=== PATIENT | female | born 1990 | race American Indian/Alaskan Native ===

== ENCOUNTER 2021-02-05 23:20 | Observation (INO) | payer MEDICAID ==
[2021-02-06 00:45] LABS: Basophils % (Auto) 0.2 % (0.0-1.8); Eosinophils % (Auto) 0.4 % (0.0-4.3); Hemoglobin 10.8 gm/dl (10.1-14.3); Lymphocytes # (Auto) 3.1 K/mm3 (1.2-5.4); Lymphocytes % (Auto) 25.6 % (13.4-35.0); Mean Corpuscular HGB Conc 34 % (30-34); Monocytes # (Auto) 0.7 K/mm3 (0.0-0.8); Monocytes % (Auto) 5.5 % (0.0-7.3); Platelet Count 715 K/mm3 (140-440); Red Blood Count 4.57 M/mm3 (3.65-5.03); Red Cell Distribution Width 17.9 % (13.2-15.2)
[2021-02-06 01:05] LABS: Alanine Aminotransferase 11 units/L (7-56); Albumin 3.8 g/dL (3.9-5); BUN/Creatinine Ratio 11; Blood Urea Nitrogen 9 mg/dL (7-17); Calcium 9.3 mg/dL (8.4-10.2); Hemolysis Index 3; Mean Corpuscular Volume 70 fl (79-97)
[2021-02-06] MEDS ORDERED: HYDROmorphone 1 MG/1 ML INJ IV ONE ×2 (01:22→05:10)
[2021-02-06] MEDS ORDERED: SODIUM CHLORIDE 0.9% 1000 ML 1,000 ML IV ONE ×4 (01:22→08:54)
[2021-02-06] MEDS ORDERED: ONDANSETRON 4 MG/2 ML INJ IV ONE (01:22)
--- NOTE | 2021-02-06 01:25 | Emergency Department Report ---
ED Abdominal Pain HPI - General Chief Complaint: Rectal Pain Stated Complaint: RECTAL BLEEDING/DIARRHEA PUI?: No Time Seen by Provider: 02/06/21 01:14 Source: patient Mode of arrival: Ambulatory Limitations: No Limitations - History of Present Illness Initial Comments: Patient is a 30-year-old female that presents emergency room with complaints of abdominal pain and GI bleed. Patient states she got bright red blood per rectum . Patient states her abdominal pain been going on for 3 weeks. Patient states her abdominal pain is worsening. Patient states it was tolerable up until yesterday. Patient states her bright red blood per rectum was minimal until up to yesterday and it became more profuse and heavy rectal bleeding. Patient states she has a history of ulcerative colitis. Patient states this is one of her worst flareups. Patient states she is unable to tolerate the pain and the rectal bleeding. Patient states the pain is a 10 out of 10. Patient dates the pain is better with rest and worse with movement and vomiting. Patient states she has had nausea and vomiting as well. Patient denies blood in her vomitus. Patient complains of diarrhea. Patient denies constipation. Patient denies chest pain shortness of breath. Patient denies recent travel. Patient denies recent international travel. Patient denies exposure to the novel coronavirus. Patient denies sick contacts. Patient denies fever and chills. Patient denies cough. Patient denies loss of smell. Patient denies coming in contact with anybody with symptoms of the novel coronavirus. MD Complaint: abdominal pain -: Sudden Location: diffuse Radiation: none Migration to: no migration Severity: severe Severity scale (0 -10): 10 Quality: stabbing Consistency: constant Improves With: rest Worsens With: vomiting, movement Associated Symptoms: nausea, vomiting, hematochezia. denies: diarrhea, fever, chills, constipation, dysuria, hematemesis, melena, hematuria - Related Data LMP (females 10-50): last week Allergies Allergy/AdvReac Type Severity Reaction Status Date / Time No Known Allergies Allergy Verified 02/06/21 04:44 ED Review of Systems ROS: Stated complaint: RECTAL BLEEDING/DIARRHEA Other details as noted in HPI Constitutional: denies: chills, fever Eyes: denies: eye pain, eye discharge, vision change ENT: denies: ear pain, throat pain Respiratory: denies: cough, shortness of breath, wheezing Cardiovascular: denies: chest pain, palpitations Endocrine: no symptoms reported Gastrointestinal: abdominal pain, nausea, vomiting, diarrhea, hematochezia. denies: constipation, hematemesis Genitourinary: denies: urgency, dysuria, discharge Musculoskeletal: denies: back pain, joint swelling, arthralgia Skin: denies: rash, lesions Neurological: denies: headache, weakness, paresthesias Psychiatric: denies: anxiety, depression Hematological/Lymphatic: denies: easy bleeding, easy bruising ED Past Medical Hx - Past Medical History Previous Medical History?: Yes Additional medical history: ulcerative collitis - Surgical History Past Surgical History?: Yes Additional Surgical History: c-sectionx 1 - Family History Family history: no significant - Social History Smoking Status: Never Smoker Substance Use Type: None ED Physical Exam - General Limitations: No Limitations General appearance: alert, in no apparent distress - Head Head exam: Present: atraumatic, normocephalic - Eye Eye exam: Present: normal appearance - ENT ENT exam: Present: mucous membranes moist - Neck Neck exam: Present: normal inspection - Respiratory Respiratory exam: Present: normal lung sounds bilaterally. Absent: respiratory distress - Cardiovascular Cardiovascular Exam: Present: regular rate, normal rhythm. Absent: systolic murmur, diastolic murmur, rubs, gallop - GI/Abdominal GI/Abdominal exam: Present: soft, tenderness, normal bowel sounds - Extremities Exam Extremities exam: Present: normal inspection - Back Exam Back exam: Present: normal inspection - Neurological Exam Neurological exam: Present: alert, oriented X3 - Psychiatric Psychiatric exam: Present: normal affect, normal mood - Skin Skin exam: Present: warm, dry, intact, normal color. Absent: rash ED Course Vital Signs 02/05/21 02/05/21 02/06/21 23:47 23:51 01:34 Temperature 98.7 F Pulse Rate 48 L 148 H Respiratory 18 18 Rate Blood Pressure 111/80 O2 Sat by Pulse 97 Oximetry 02/06/21 02/06/21 02/06/21 02:00 02:04 02:30 Temperature Pulse Rate 90 91 H Respiratory 18 Rate Blood Pressure 90/56 90/51 O2 Sat by Pulse 96 99 Oximetry 02/06/21 02/06/21 02/06/21 03:16 03:30 03:46 Temperature Pulse Rate 95 H 89 86 Respiratory 32 H 15 14 Rate Blood Pressure 92/59 92/59 98/52 O2 Sat by Pulse 98 98 98 Oximetry 02/06/21 02/06/21 02/06/21 04:00 04:16 05:49 Temperature Pulse Rate 86 84 Respiratory 14 17 18 Rate Blood Pressure 98/52 98/52 O2 Sat by Pulse 98 98 Oximetry - Reevaluation(s) Reevaluation #1: Patient heart rate initially high and has responded well to treatment. Patient blood pressure on the low side in the patient will receive more fluids. 02/06/21 03:09 Reevaluation #2: I discussed all results with patient. I discussed plan of care with patient. Patient agrees with plan of care and admission. Patient to be admitted to the hospitalist service. 02/06/21 05:14 - Consultations Consultation #1: I discussed the case with GI, Dr. HERNANDEZ.. Dr. HERNANDEZ agrees with admission. 02/06/21 05:09 Consultation #2: Hospitalist consulted for admission. Hospitalist to admit patient. 02/06/21 05:09 ED Medical Decision Making - Lab Data Result diagrams: 02/06/21 00:19 02/06/21 00:19 - Radiology Data Radiology results: report reviewed CT abdomen pelvis w con INDICATION: Diffuse abdominal pain with rectal bleeding. COMPARISON: None TECHNIQUE: Abdominal and pelvic CT exam performed. All CT scans at this location are performed using CT dose reduction for ALARA by means of automated exposure control. FINDINGS: CT ABDOMEN and PELVIS: Lung Bases: No significant abnormality. Liver: No significant abnormality. Biliary: No significant abnormality. Spleen: No significant abnormality. Pancreas: No significant abnormality. Adrenals: No significant abnormality. Kidneys: No significant abnormality. Lymphatics: No lymphadenopathy. Vasculature: No significant abnormality. Bowel: Continuous pancolonic wall thickening with some mucosal edema and mucosal hyperemia. Terminal ileum mucosal hyperemia is present. However, the remainder of the small bowel does not appear to be affected and findings could be related to backwash ileitis. Normal appendix. Pelvis: Fluid in the pelvis which is most likely related to colitis. Osseous Structures: No aggressive osseous lesion. 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 Additional Findings: None IMPRESSION: 1. Diffuse pancolitis. Correlate clinically but given the the continuous segment of involvement from rectum to the cecum, findings raise concern for underlying ulcerative colitis. - Medical Decision Making Patient is a 30-year-old female who presents emergency room with complaints of generalized abdominal pain, nausea, vomiting, bright red blood per rectum. Patient has history of ulcerative colitis. Patient had labs done which were essentially unremarkable. Patient had CT scan abdomen which shows pancolitis. Patient admitted to the hospital service for further evaluation treatment. Prior to admission, I discussed the case with GI. GI recommends admission for pain control and observation. Critical care time documented due to the multiple reassessments, prolonged time at the bedside, interpretation of diagnostics and labs. - Differential Diagnosis Ulcerative colitis, abdominal pain, bright red blood per rectum, Critical Care Time: Yes Critical care time in (mins) excluding proc time.: 35 Critical care attestation.: If time is entered above; I have spent that time in minutes in the direct care of this critically ill patient, excluding procedure time. Critical Care Time: 35 minutes ED Disposition Clinical Impression: BRBPR (bright red blood per rectum) Abdominal pain Qualifiers: Abdominal location: generalized Qualified Code(s): R10.84 - Generalized abdominal pain Ulcerative colitis Qualifiers: Ulcerative colitis location: ulcerative pancolitis Digestive disease co mplication type: unspecified complication Qualified Code(s): K51.019 - Ulcerative (chronic) pancolitis with unspecified complications Hypotension Qualifiers: Hypotension type: unspecified hypotension type Qualified Code(s): I95.9 - Hypotension, unspecified Disposition: DC-09 OP ADMIT IP TO THIS HOSP Is pt being admited?: Yes Does the pt Need Aspirin: No Condition: Critical Time of Disposition: 05:15
--- NOTE | 2021-02-06 03:23 | Cat Scan Report ---
CT abdomen pelvis w con INDICATION: Diffuse abdominal pain with rectal bleeding. COMPARISON: None TECHNIQUE: Abdominal and pelvic CT exam performed. All CT scans at this location are performed using CT dose reduction for ALARA by means of automated exposure control. FINDINGS: CT ABDOMEN and PELVIS: Lung Bases: No significant abnormality. Liver: No significant abnormality. Biliary: No significant abnormality. Spleen: No significant abnormality. Pancreas: No significant abnormality. Adrenals: No significant abnormality. Kidneys: No significant abnormality. Lymphatics: No lymphadenopathy. Vasculature: No significant abnormality. Bowel: Continuous pancolonic wall thickening with some mucosal edema and mucosal hyperemia. Terminal ileum mucosal hyperemia is present. However, the remainder of the small bowel does not appear to be a ffected and findings could be related to backwash ileitis. Normal appendix. Pelvis: Fluid in the pelvis which is most likely related to colitis. Osseous Structures: No aggressive osseous lesion. 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 Additional Findings: None IMPRESSION: 1. Diffuse pancolitis. Correlate clinically but given the the continuous segment of involvement from rectum to the cecum, findings raise concern for underlying ulcerative colitis. Signer Name: Edwardo Mohan MD Signed: 02/06/2021 3:19 AM Workstation Name: [id number]
[2021-02-06 03:57] LABS: Bilirubin,Urine NEG (Negative); Blood,Urine NEG (Negative); Color,Urine Straw (Yellow); Mucus,Urine FEW /HPF; Protein,Urine <15 mg/dL mg/dL (Negative); Urobilinogen,Urine < 2.0 mg/dL (<2.0); WBC,Urine < 1.0 /HPF (0.0-6.0)
[2021-02-06] MEDS ORDERED: PIPERACIL/TAZOBACTA 4.5/NS 100 4.5 GM/100 ML VIAL IV ONE (05:10)
[2021-02-06] MEDS ORDERED: MORPHINE 2 MG/1 ML INJ IV PRN (05:14)
[2021-02-06] MEDS ORDERED: ACETAMINOPHEN 325 MG TAB PO PRN (05:14)
[2021-02-06] MEDS ORDERED: ALBUTEROL 2.5 MG/3 ML NEBU IH PRN (05:14)
[2021-02-06] MEDS ORDERED: NALOXONE 0.4 MG/1 ML INJ IV PRN (05:14)
[2021-02-06] MEDS ORDERED: ONDANSETRON 4 MG/2 ML INJ IV PRN (05:14)
--- NOTE | 2021-02-06 05:22 | History and Physical Report ---
History of Present Illness Date of examination: 02/06/21 Date of admission: 02/06/2021 Chief complaint: Abdominal cramping, bright red blood per rectum History of present illness: 30-year-old -[place] female with history of ulcerative colitis who presents to [facility] ED with complaints of abdominal pain/cramping and bright red blood per rectum. Patient states she has been experiencing diffuse abdominal cramping/pain for the past 3 weeks. Initially her pain was manageable, but now it has worsened and she is unable to tolerate the pain. She rates her pain 10/10 and is alleviated with rest and pain medicine. Endorses heavy bright red blood per rectum x1 day, nausea, vomiting, and diarrhea. She states that when she goes to the bathroom there is no stool only bright red blood. Patient states she usually goes to [place] or [facility] for care. Denies fever, chills, headache, shortness of breath, chest pain, palpitation, hemoptysis, hematic emesis, constipation, loss of smell, loss of taste, blurred vision, loss of vision, hematuria, dysuria, or recent sick contacts Past History Past Medical History: other (Ulcerative colitis) Past Surgical History: (x1) Social history: single, Lives alone, full code. denies: smoking, alcohol abuse, IV drug use Family history: cancer (mother: breast ca), diabetes, hypertension Medications and Allergies Allergies Allergy/AdvReac Type Severity Reaction Status Date / Time No Known Allergies Allergy Verified 02/06/21 04:44 Active Meds: Active Medications Sodium Chloride (Nacl 0.9% 1000 Ml) 1,000 mls @ 999 mls/hr IV BOLUS ONE Stop: 02/06/21 05:26 Last Admin: 02/06/21 04:30 Dose: 999 mls/hr Documented by: Sodium Chloride (Nacl 0.9% 1000 Ml) 1,000 mls @ 999 mls/hr IV BOLUS ONE Stop: 02/06/21 06:10 Piperacillin Sod/Tazobactam Sod (Zosyn/Ns 4.5gm/100ml) 4.5 gm in 100 mls @ 200 mls/hr IV ONCE ONE; Protocol Stop: 02/06/21 05:39 Sodium Chloride (Sodium Chloride 0.9% 10 Ml Flush Syringe) 10 ml IV PRN PRN PRN Reason: LINE FLUSH Review of Systems All systems: negative (As noted in HPI) Exam - Physical Exam Narrative exam: Physical exam General appearance: Present: No acute distress, alert and oriented 3, adult female - EENT Eyes: Present: PERRL, EOM intact ENT: hearing intact, normal dentition - Neck Neck: Present: supple, normal ROM - Respiratory Respiratory effort: Non-labored Respiratory: Clear throughout - Cardiovascular Heart rate: 95 (bpm) Rhythm: Sinus Heart Sounds: Present: S1 & S2. Absent: rub, click - Extremities Extremities: no ischemia, pulses intact, - Peripheral Assessment Peripheral Pulses: within normal limits - Abdominal General gastrointestinal: soft, diffuse tenderness, distended, active bowel sounds - Integumentary Integumentary: Present: warm, dry - Musculoskeletal Musculoskeletal: Able to move all extremities -Neurological Neurological: CN II-XII intact - Psychiatric Psychiatric: cooperative - Constitutional Vitals: Temp Pulse Resp BP Pulse Ox 98.7 F 84 17 98/52 98 02/05/21 23:47 02/06/21 04:16 02/06/21 04:16 02/06/21 04:16 02/06/21 04:16 Results - Labs CBC & Chem 7: 02/06/21 00:19 02/06/21 00:19 Labs: Laboratory Last Values WBC 12.3 K/mm3 (4.5-11.0) H 02/06/21 00:19 RBC 4.57 M/mm3 (3.65-5.03) 02/06/21 00:19 Hgb 10.8 gm/dl (10.1-14.3) 02/06/21 00:19 Hct 32.0 % (30.3-42.9) 02/06/21 00:19 MCV 70 fl (79-97) L 02/06/21 00:19 MCH 24 pg (28-32) L 02/06/21 00:19 MCHC 34 % (30-34) 02/06/21 00:19 RDW 17.9 % (13.2-15.2) H 02/06/21 00:19 Plt Count 715 K/mm3 (140-440) H 02/06/21 00:19 Lymph % (Auto) 25.6 % (13.4-35.0) 02/06/21 00:19 [place] % (Auto) 5.5 % (0.0-7.3) 02/06/21 00:19 Eos % (Auto) 0.4 % (0.0-4.3) 02/06/21 00:19 Baso % (Auto) 0.2 % (0.0-1.8) 02/06/21 00:19 Lymph # (Auto) 3.1 K/mm3 (1.2-5.4) 02/06/21 00:19 [place] # (Auto) 0.7 K/mm3 (0.0-0.8) 02/06/21 00:19 Eos # (Auto) 0.0 K/mm3 (0.0-0.4) 02/06/21 00:19 Baso # (Auto) 0.0 K/mm3 (0.0-0.1) 02/06/21 00:19 Seg Neutrophils % 68.3 % (40.0-70.0) 02/06/21 00:19 Seg Neutrophils # 8.4 K/mm3 (1.8-7.7) H 02/06/21 00:19 Sodium 138 mmol/L (137-145) 02/06/21 00:19 Potassium 3.7 mmol/L (3.6-5.0) 02/06/21 00:19 Chloride 95.9 mmol/L (98-107) L 02/06/21 00:19 Carbon Dioxide 28 mmol/L (22-30) 02/06/21 00:19 Anion Gap 18 mmol/L 02/06/21 00:19 BUN 9 mg/dL (7-17) 02/06/21 00:19 Creatinine 0.8 mg/dL (0.6-1.2) 02/06/21 00:19 Estimated GFR > 60 ml/min 02/06/21 00:19 BUN/Creatinine Ratio 11 % 02/06/21 00:19 Glucose 71 mg/dL (65-100) 02/06/21 00:19 Calcium 9.3 mg/dL (8.4-10.2) 02/06/21 00:19 Total Bilirubin < 0.20 mg/dL (0.1-1.2) 02/06/21 00:19 AST 13 units/L (5-40) 02/06/21 00:19 ALT 11 units/L (7-56) 02/06/21 00:19 Alkaline Phosphatase 67 units/L (35-129) 02/06/21 00:19 Total Protein 6.7 g/dL (6.3-8.2) 02/06/21 00:19 Albumin 3.8 g/dL (3.9-5) L 02/06/21 00:19 Albumin/Globulin Ratio 1.3 % 02/06/21 00:19 HCG, Qual Negative (Negative) 02/06/21 00:19 Urine Color Straw (Yellow) 02/06/21 Unknown Urine Turbidity Clear (Clear) 02/06/21 Unknown Urine pH 7.0 (5.0-7.0) 02/06/21 Unknown Ur Specific [place] 1.017 (1.003-1.030) 02/06/21 Unknown Urine Protein <15 mg/dl mg/dL (Negative) 02/06/21 Unknown Urine Glucose (UA) Neg mg/dL (Negative) 02/06/21 Unknown Urine Ketones Tr mg/dL (Negative) 02/06/21 Unknown Urine Blood Neg (Negative) 02/06/21 Unknown Urine Nitrite Neg (Negative) 02/06/21 Unknown Urine Bilirubin Neg (Negative) 02/06/21 Unknown Urine Urobilinogen < 2.0 mg/dL (<2.0) 02/06/21 Unknown Ur Leukocyte Esterase Neg (Negative) 02/06/21 Unknown Urine WBC (Auto) < 1.0 /HPF (0.0-6.0) 02/06/21 Unknown Urine RBC (Auto) 1.0 /HPF (0.0-6.0) 02/06/21 Unknown U Epithel Cells (Auto) < 1.0 /HPF (0-13.0) 02/06/21 Unknown Urine Mucus Few /HPF 02/06/21 Unknown - Imaging and Cardiology Imaging and Cardiology: CT abdomen/pelvis: FINDINGS: CT ABDOMEN and PELVIS: Lung Bases: No significant abnormality. Liver: No significant abnormality. Biliary: No significant abnormality. Spleen: No significant abnormality. Pancreas: No significant abnormality. Adrenals: No significant abnormality. Kidneys: No significant abnormality. Lymphatics: No lymphadenopathy. Vasculature: No significant abnormality. Bowel: Continuous pancolonic wall thickening with some mucosal edema and mucosal hyperemia. Terminal ileum mucosal hyperemia is present. However, the remainder of the small bowel does not appear to be affected and findings could be related to backwash ileitis. Normal appendix. Pelvis: Fluid in the pelvis which is most likely related to colitis. Osseous Structures: No aggressive osseous lesion. 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 Additional Findings: None IMPRESSION: 1. Diffuse pancolitis. Correlate clinically but given the the continuous segment of involvement from rectum to the cecum, findings raise concern for underlying ulcerative colitis. Assessment and Plan Assessment and plan: Ulcerative colitis -CT abdomen pelvis shows Diffuse pancolitis -History of ulcerative colitis -IV systemic steroids -On broad-spectrum IV ABX -On Protonix -Cultures pending -N.p.o. for now -GI consulted with plans to see patient in a.m. Acute abdominal pain -Secondary to #1 -Pain management, supportive care Hypotension -BP on admission 92/59 -Responsive to fluid resuscitation -On IVF -Continue to monitor BP Leukocytosis -WBC 12.3 on admission -Cultures pending -On IV ABX -Continue to monitor CBC Advance Directives: No VTE prophylaxis?: Mechanical Reason for no VTE Prophylaxis: Bleeding Plan of care discussed with patient/family: Yes
[2021-02-06] MEDS: methylPREDNISolone Sod Succinate 40 MG/1 ML INJ IV SCH ×3 (05:55→21:55)
[2021-02-06] MEDS ORDERED: D5W/0.45% NACL 1,000 ML IV SCH (06:00)
[2021-02-06] MEDS ORDERED: SODIUM CHLORIDE 0.9% 500 ML 500 ML IV ONE (06:49)
[2021-02-06] MEDS: PANTOPRAZOLE 40 MG INJ IV SCH ×2 (10:05→21:55)
--- NOTE | 2021-02-06 13:06 | Consultation ---
History of Present Illness - Reason for Consult Consult date: 02/06/21 Ulcerative colitis Requesting physician: KUMAR PORTILLO - History of Present Illness Ms. Ngo is a 30-year-old [employer] employee admitted with diagnosis of ulcerative colitis. Patient states that she was initially diagnosed with Crohn's disease at [facility] in 2018. Last year, after another colonoscopy, she was changed to a diagnosis of ulcerative colitis. She had been on mesalamine prev iously but it failed to work. In June 2020, she was started on Humira and was on steroids as well. She said it did not work well and they were discontinued a month ago by her [facility]. She has had ongoing problems with diarrhea since then with up to 10 bowel movements a day that have been bloody. She denies any significant abdominal pain nausea or vomiting. She was having difficulty getting care in a timely fashion at [facility]. She also went to [facility] several times to the hospital and did not get any help with her ulcerative colitis. She therefore decided to come to [facility]. Currently, no abdominal pain nausea or vomiting. She denies fevers chills or sweats. She has lost 15 pounds over the last month and a half. Medications reviewed. Past History Past Medical History: GERD, other (Ulcerative colitis) Past Surgical History: (x1) Social history: single, Lives alone, full code. denies: smoking, alcohol abuse, IV drug use Family history: cancer (mother: breast ca), diabetes, hypertension Medications and Allergies Allergies Allergy/AdvReac Type Severity Reaction Status Date / Time No Known Allergies Allergy Verified 02/06/21 04:44 Active Meds: Active Medications Acetaminophen (Acetaminophen 325 Mg Tab) 650 mg PO Q4H PRN PRN Reason: Pain MILD(1-3)/Fever >100.5/HOLLEY Albuterol (Albuterol 2.5 Mg/3 Ml Nebu) 2.5 mg IH Q3HRT PRN PRN Reason: Shortness Of Breath Hydromorphone HCl (Hydromorphone 1 Mg/1 Ml Inj) 0.5 mg IV Q3H PRN PRN Reason: Pain , Severe (7-10) Dextrose/Sodium Chloride (D5/0.45ns) 1,000 mls @ 75 mls/hr IV DIRECT BELLA Last Admin: 02/06/21 06:44 Dose: 75 mls/hr Documented by: Piperacillin Sod/Tazobactam Sod (Zosyn/Ns 4.5gm/100ml) 4.5 gm in 100 mls @ 200 mls/hr IV Q8H [facility]; Protocol Methylprednisolone Sodium Succinate (Methylprednisolone Sod Succinate 40 Mg/1 Ml Inj) 20 mg IV Q8HR [facility] Last Admin: 02/06/21 05:55 Dose: 20 mg Documented by: Morphine Sulfate (Morphine 2 Mg/1 Ml Inj) 2 mg IV Q4H PRN PRN Reason: Pain, Moderate (4-6) Naloxone HCl (Naloxone 0.4 Mg/1 Ml Inj) 0.1 mg IV Q2MIN PRN PRN Reason: Res Rate </= 8 or 02 SAT < 92% Ondansetron HCl (Ondansetron 4 Mg/2 Ml Inj) 4 mg IV Q6H PRN PRN Reason: Nausea And Vomiting Pantoprazole Sodium (Pantoprazole 40 Mg Inj) 40 mg IV BID [facility] Last Admin: 02/06/21 10:05 Dose: 40 mg Documented by: Sodium Chloride (Sodium Chloride 0.9% 10 Ml Flush Syringe) 10 ml IV PRN PRN PRN Reason: LINE FLUSH Sodium Chloride (Sodium Chloride 0.9% 10 Ml Flush Syringe) 10 ml IV BID [facility] Last Admin: 02/06/21 10:06 Dose: 10 ml Documented by: Review of Systems All systems: negative (as per HPI) Exam - Constitutional Vitals: Temp Pulse Resp BP Pulse Ox 98.4 F 83 16 106/62 99 02/06/21 11:42 02/06/21 11:42 02/06/21 11:42 02/06/21 11:42 02/06/21 11:42 General appearance: Present: no acute distress - EENT Eyes: Present: PERRL, EOM intact ENT: hearing intact - Respiratory Respiratory effort: normal Respiratory: bilateral: CTA - Cardiovascular Rhythm: regular Heart Sounds: Present: S1 & S2 - Extremities Extremities: No edema - Abdominal General gastrointestinal: Present: soft, non-tender Results - Labs CBC & Chem 7: 02/06/21 00:19 02/06/21 00:19 Labs: Abnormal lab results 02/06/21 02/06/21 Range/Units 00:19 00:19 WBC 12.3 H (4.5-11.0) K/mm3 MCV 70 L (79-97) fl MCH 24 L (28-32) pg RDW 17.9 H (13.2-15.2) % Plt Count 715 H (140-440) K/mm3 Seg Neutrophils # 8.4 H (1.8-7.7) K/mm3 Chloride 95.9 L (98-107) mmol/L Albumin 3.8 L (3.9-5) g/dL - Imaging and Cardiology CT scan - abdomen: report reviewed (Pancolitis) Assessment and Plan 1. Ulcerative colitis -with pancolitis noted on CT scan. Patient is currently on no medications, and has failed mesalamine as well as Humira. She states that she does fairly well with steroids. She is awaiting escalation of management of her care but has not been able to get an appointment in a timely fashion, and therefore presented here. She is interested in trying to find alternate GI care. -Give IV steroids today and if tolerates diet well, may discharge to home on oral prednisone at 40 mg/day and taper by 10 mg/week. -Would also empirically give her metronidazole and ciprofloxacin for 10 days to help facilitate reducing her flare. -Patient will need outpatient GI follow-up with an IBD specialist since she has failed Humira and mesalamine. She may require a trial of an alternate medication such as Stelara or Remicade, and possibly the addition of other immunomodulators. If all else fails, surgical management would be appropriate. 2. Microcytic anemia -most consistent with chronic blood loss. -Check iron levels, and discharge empirically on oral iron. If patient does well, she may be discharged to home from a GI standpoint with outpatient follow-up in 2 to 3 weeks.
[2021-02-06] MEDS: PIPERACIL/TAZOBACTA 4.5/NS 100 4.5 GM/100 ML VIAL IV SCH ×2 (13:56→21:56)
[2021-02-06] MEDS ORDERED: methylPREDNISolone Sod Suc 40 MG in SODIUM CHLORIDE 0.9% 100 ML IV SCH (14:00)
[2021-02-06 14:28] LABS: Iron 12 ug/dL (37-170); Total Iron Binding Capacity 199 mcg/dL (250-450)
--- NOTE | 2021-02-06 15:12 | Event Note ---
Date: 02/06/21 Patient seen and examined This the second visit after midnight Vitals noted, patient continued to complains of abdominal cramping but symptoms somewhat improved H&H stable, S1 and S2 p.o. daily, clear to auscultation bilaterally, abdomen with diffuse mild tenderness 30-year-old -[place] female with history of ulcerative colitis who pres ents to [facility] ED with complaints of abdominal pain/cramping and bright red blood per rectum. Continue empiric steroid and empiric antibiotics If clinically stable and able to tolerate diet possible discharge tomorrow GI consulted, appreciate recommendation Monitor CBC and BMP It took me about 28 minutes to reevaluate and reasses this patient, discussed with RN/CM, review medical documents, lab results, imaging, medication list and placing order.
[2021-02-06] MEDS: HYDROmorphone 1 MG/1 ML INJ IV PRN (18:19)
[2021-02-07] MEDS: HYDROmorphone 1 MG/1 ML INJ IV PRN (00:40)
[2021-02-07 05:33] VITALS: BP 97/62
[2021-02-07] MEDS: PIPERACIL/TAZOBACTA 4.5/NS 100 4.5 GM/100 ML VIAL IV SCH (05:42)
[2021-02-07] MEDS ORDERED: PANTOPRAZOLE 40 MG TAB PO SCH (07:30)
[2021-02-07 08:06] LABS: Hematocrit 27.5 % (30.3-42.9); Hemoglobin 8.6 gm/dl (10.1-14.3); Mean Corpuscular HGB Conc 31 % (30-34); Mean Corpuscular Volume 70 fl (79-97); Platelet Count 605 K/mm3 (140-440); Red Blood Count 3.92 M/mm3 (3.65-5.03); Red Cell Distribution Width 17.8 % (13.2-15.2)
[2021-02-07 08:07] LABS: Basophils % (Auto) 0.1 % (0.0-1.8); Eosinophils % (Auto) 0.1 % (0.0-4.3); Lymphocytes # (Auto) 1.1 K/mm3 (1.2-5.4); Lymphocytes % (Auto) 17.7 % (13.4-35.0); Monocytes # (Auto) 0.5 K/mm3 (0.0-0.8); Monocytes % (Auto) 7.5 % (0.0-7.3)
[2021-02-07 08:18] LABS: Blood Urea Nitrogen 5 mg/dL (7-17); Calcium 8.8 mg/dL (8.4-10.2); Hemolysis Index 1
[2021-02-07 08:31] LABS: BUN/Creatinine Ratio 10
[2021-02-07] MEDS: methylPREDNISolone Sod Succinate 40 MG/1 ML INJ IV SCH (09:20)
--- NOTE | 2021-02-07 11:47 | Progress Note ---
Assessment and Plan 1. Ulcerative colitis -with pancolitis noted on CT scan. Doing well now. Patient is currently on no outpatient medications, and has failed mesalamine as well as Humira. She states that she does fairly well with steroids. She is awaiting escalation of management of her care but has not been able to get an appointment in a timely fashion, and therefore presented here. She is interested in trying to find alternate GI care. -May discharge to home on oral prednisone at 40 mg/day and taper by 10 mg/week. -Would also empirically give her metronidazole and ciprofloxacin for 10 days to help facilitate reducing her flare. -Patient will need outpatient GI follow-up with an IBD specialist since she has failed Humira and mesalamine. She may require a trial of an alternate medication such as Stelara or Remicade, and possibly the addition of other immunomodulators. If all else fails, surgical management would be appropriate. 2. Microcytic anemia -most consistent with chronic blood loss. Hemoglobin down to 8.6 today. Iron saturation approximately 6%. Consistent with chronic GI blood loss. -Discharge empirically on oral iron. Okay to discharge to home from a GI standpoint with outpatient follow-up in 2 to 3 weeks. Subjective Date of service: 02/07/21 Interval history: Patient doing much better. Has had 2 bowel movements today, with more formed. No significant abdominal pain. No more blood in stool. Tolerating p.o. diet. Objective - Constitutional Vitals: Vital Signs - 12hr 02/07/21 02/07/21 00:40 04:19 Temperature 97.8 F Pulse Rate 87 Respiratory 20 16 Rate Blood Pressure 97/62 O2 Sat by Pulse 99 Oximetry General appearance: Present: no acute distress - EENT Eyes: PERRL, EOM intact ENT: hearing intact - Respiratory Respiratory effort: normal - Gastrointestinal General gastrointestinal: Present: soft, non-tender - Labs CBC & Chem 7: 02/07/21 07:05 02/07/21 07:05 Labs: Abnormal lab results 02/06/21 02/07/21 02/07/21 Range/Units 13:27 07:05 07:05 Hgb 8.6 L (10.1-14.3) gm/dl Hct 27.5 L (30.3-42.9) % MCV 70 L (79-97) fl MCH 22 L (28-32) pg RDW 17.8 H (13.2-15.2) % Plt Count 605 H (140-440) K/mm3 [place] % (Auto) 7.5 H (0.0-7.3) % Lymph # (Auto) 1.1 L (1.2-5.4) K/mm3 Seg Neutrophils % 74.6 H (40.0-70.0) % BUN 5 L (7-17) mg/dL Creatinine 0.5 L (0.6-1.2) mg/dL Glucose 151 H (65-100) mg/dL Iron 12 L (37-170) ug/dL TIBC 199 L (250-450) mcg/dL Medications & Allergies - Medications Allergies/Adverse Reactions: Allergies No Known Allergies Allergy (Verified 02/06/21 04:44) Home Medications: Home Medications Medication Instructions Recorded Confirmed Last Taken Type No Known Home Medications [No 02/07/21 02/07/21 Unknown History Reported Home Medications] Active Medications: Generic Name Dose Route Start Last Admin Trade Name Evan PRN Reason Stop Dose Admin Acetaminophen 650 mg 02/06/21 05:14 Acetaminophen 325 Mg Tab PO Q4H PRN Pain MILD(1-3)/Fever >100.5/HOLLEY Albuterol 2.5 mg 02/06/21 05:14 Albuterol 2.5 Mg/3 Ml Nebu IH Q3HRT PRN Shortness Of Breath Hydromorphone HCl 0.5 mg 02/06/21 05:14 02/07/21 00:40 Hydromorphone 1 Mg/1 Ml Inj IV 0.5 mg Q3H PRN Administration Pain , Severe (7-10) Dextrose/Sodium Chloride 1,000 mls @ 75 mls/hr 02/06/21 06:00 02/06/21 06:44 D5/0.45ns IV 75 mls/hr DIRECT BELLA Administration Piperacillin Sod/Tazobactam Sod 4.5 gm in 100 mls @ 200 mls/hr 02/06/21 14:00 02/07/21 05:42 Zosyn/Ns 4.5gm/100ml IV 200 mls/hr Q8H BELLA Administration Protocol Methylprednisolone Sodium Succinate 40 mg 02/06/21 22:00 02/07/21 09:20 Methylprednisolone Sod Succinate 40 Mg/1 Ml Inj IV 40 mg Q12HR BELLA Administration Morphine Sulfate 2 mg 02/06/21 05:14 02/07/21 09:26 Morphine 2 Mg/1 Ml Inj IV 2 mg Q4H PRN Administration Pain, Moderate (4-6) Naloxone HCl 0.1 mg 02/06/21 05:14 Naloxone 0.4 Mg/1 Ml Inj IV Q2MIN PRN Res Rate </= 8 or 02 SAT < 92% Ondansetron HCl 4 mg 02/06/21 05:14 Ondansetron 4 Mg/2 Ml Inj IV Q6H PRN Nausea And Vomiting Pantoprazole Sodium 40 mg 02/07/21 07:30 02/07/21 07:30 Pantoprazole 40 Mg Tab PO 40 mg BIDAC BELLA Administration Sodium Chloride 10 ml 02/06/21 05:11 Sodium Chloride 0.9% 10 Ml Flush Syringe IV PRN PRN LINE FLUSH Sodium Chloride 10 ml 02/06/21 10:00 02/07/21 09:20 Sodium Chloride 0.9% 10 Ml Flush Syringe IV 10 ml BID BELLA Administration
--- NOTE | 2021-02-07 12:38 | Discharge Summary ---
Providers - Providers Date of Admission: 02/06/21 05:14 Date of discharge: 02/07/21 Attending physician: KUMAR PORTILLO 02/06/21 05:14 Consult to Physician [CONS] Routine Comment: Consulting Provider: NAZANIN LUNDY Physician Instructions: Reason For Exam: Ulcerative colitis, 02/06/21 05:15 Consult to Physician [CONS] Routine Comment: Consulting Provider: NATI HERNANDEZ Physician Instructions: Reason For Exam: uc. prbpr Primary care physician: CRISTIAN ALANIS Hospitalization Condition: Fair Pertinent studies: Abdominal pelvis CT: 1. Diffuse pancolitis. Correlate clinically but given the the continuous segment of involvement from rectum to the cecum, findings raise concern for underlying ulcerative colitis. Hospital course: 30-year-old -[place] female with history of ulcerative colitis who presents to [facility] ED with complaints of abdominal pain/cramping and bright red blood per rectum. Continue empiric steroid and empiric antibiotics. Patient is currently on no outpatient medications, and has failed mesalamine as well as Humira. She states that she does fairly well with steroids. She is awaiting escalation of management of her care but has not been able to get an appointment in a timely fashion, and therefore presented here. GI was consulted and recommended discharge to home on oral prednisone at 40 mg/day and taper by 10 mg/week, also empirically given her prescription for metronidazole and ciprofloxacin for 10 days to help facilitate reducing her flare. Patient was tolerating diet, H&H was stable. Patient was discharged home in stable condition, she will resume her care as outpatient and follow-up with GI in 2 weeks. Disposition: TO HOME OR SELFCARE Final Discharge Diagnosis (Prints w/discharge instructions): --Ulcerative colitis with flareup. --Microcytic anemia with iron deficiency. --Tim kocytosis, inflammatory due to ulcerative colitis flareup Time spent for discharge: 34 minutes Core Measure Documentation - Palliative Care Palliative Care/ Comfort Measures: Not Applicable - Core Measures Any of the following diagnoses?: none Exam - Physical Exam Narrative exam: GENERAL: well-developed and well-nourished -[place] lying on bed appeared to be in no discomfort. HEENT: Normocephalic. Atraumatic. No conjunctival congestion or icterus. Patient has moist mucous membranes. NECK: Supple. Trachea midline. CHEST/LUNGS: Clear to auscultated bilaterally, breathing nonlabored. No wheezes crackles or rhonchi. HEART/CARDIOVASCULAR: Regular in rate and rhythm. S1 and S2 positive. ABDOMEN: Abdomen is soft, mild tender. Patient has normal bowel sounds. SKIN: There is no rash. Warm and dry. NEURO: No focal motor deficit. Follows command. MUSCULOSKELETAL: No joint effusion or tenderness. EXTRIMITY: No edema, no cyanosis or clubbing. PSYCH: Cooperative. - Constitutional Vitals: Temp Pulse Resp BP Pulse Ox 97.8 F 87 16 97/62 99 02/07/21 04:19 02/07/21 04:19 02/07/21 04:19 02/07/21 04:19 02/07/21 04:19 Plan Activity: advance as tolerated Weight Bearing Status: Weight Bear as Tolerated Diet: advance as tolerated Additional Instructions: f/u with GI in 2-3 weeks Follow up with: CRISTIAN ALANIS MD [Primary Care Provider] - 7 Days Prescriptions: Ciprofloxacin HCl [Ciprofloxacin TAB] 250 mg PO BID #20 tablet metroNIDAZOLE [Flagyl] 500 mg PO Q8HR #30 tablet HYDROcodone/APAP 5-325 [[place] 5/325] 1 each PO Q6HR PRN #10 tablet PRN Reason: Pain predniSONE 10 mg PO QDAY #70 tab
== END 2021-02-07 15:05 | disposition home or self-care (01) ==
LOC: ED 23:20 → 3A 02-06 05:14
PROVIDERS: ADMIT Internal Medicine Geriatric Medicine; ATTEND Internal Medicine
DX: K51.90 Ulcerative colitis, unspecified, without complications (principal); I95.9 Hypotension, unspecified; K62.5 Hemorrhage of anus and rectum; D72.829 Elevated white blood cell count, unspecified; R00.0 Tachycardia, unspecified; K21.9 Gastro-esophageal reflux disease without esophagitis; D50.9 Iron deficiency anemia, unspecified; Z98.891 History of uterine scar from previous surgery
CPT/HCPCS: 36415; 74177; 80048; 80053; 81001; 83550; 84703; 85025; 87040; 96361; 96365; 96366; 96375; 96376; 99291; C9113; G0378; J1170; J2270; J2405; J2543; J2920; J7030; J7040; Q9967; J7070

== ENCOUNTER 2021-12-26 11:30 | Emergency (ER) | payer MEDICAID ==
[2021-12-26] MEDS ORDERED: SODIUM CHLORIDE 0.9% 1000 ML 1,000 ML IV ONE (14:21)
[2021-12-26] MEDS ORDERED: ONDANSETRON 4 MG/2 ML INJ IV ONE (14:21)
[2021-12-26] MEDS ORDERED: PIPERACILLIN/TAZOBACTAM 3.375 3.375 GM/50 ML BAG IV ONE (14:32)
[2021-12-26] MEDS ORDERED: PANTOPRAZOLE 40 MG INJ IV ONE (14:33)
[2021-12-26] MEDS ORDERED: methylPREDNISolone Sod Suc 125 MG in SODIUM CHLORIDE 0.9% 100 ML IV ONE (14:34)
--- NOTE | 2021-12-26 14:37 | Emergency Department Report ---
HPI - General Chief Complaint: Nausea/Vomiting/Diarrhea Time Seen by Provider: 12/26/21 14:20 - HPI HPI: Over the last 2 weeks the patient has been complaining of diffuse crampy moderate abdominal pain associated with some diarrhea which has been clear and watery with some minor dark red bleeding. She has had also over the last 3 days about 5 episodes of emesis the first of which was clear and the rest of had small specks of blood. She denies coffee-ground emesis. She had a baby a month ago but she is currently not breast-feeding. She denies fever chills or any other associated symptoms. Nothing makes it better nor worse and she has taken no medicines for this. She has a history of ulcerative colitis and she usually takes budesonide 9 mg daily but she has not ever since she got . ED Past Medical Hx - Past Medical History Hx Congestive Heart Failure: No Hx Diabetes: No Hx Asthma: No Hx COPD: No Additional medical history: ulcerative collitis - Surgical History Additional Surgical History: c-sectionx 1 - Social History Smoking Status: Never Smoker Substance Use Type: None - Medications Home Medications: Home Medications Medication Instructions Recorded Confirmed Last Taken Type Budesonide [Budesonide ER] 9 mg PO QDAC 15 Days #15 tab 12/26/21 Unknown Rx Ondansetron [Zofran Odt] 4 mg PO Q6H PRN 3 Days #12 12/26/21 Unknown Rx tab.rapdis Oxycodone HCl/Acetaminophen 1 each PO Q6HR PRN 3 Days #12 tab 12/26/21 Unknown Rx [Percocet 7.5/325 mg] predniSONE [Deltasone] 50 mg PO QDAY 5 Days #5 tab 12/26/21 Unknown Rx ED Review of Systems ROS: Stated complaint: BLEEDING/VOMITING Other details as noted in HPI Other: All other systems reviewed and negative. Physical Exam - Physical Exam Vital Signs: Vital Signs 12/26/21 13:14 Temperature 97.6 F Pulse Rate 153 H Respiratory 16 Rate Blood Pressure 132/91 [Left] O2 Sat by Pulse 99 Oximetry Physical Exam: Physical Exam: Constitutional: AAOX3. No acute distress. No diaphoresis. HENT: Normocephalic. Pupils equal and reactive. No throat edema or erythema. Neck: No neck rigidity or tenderness. Cardiovascular: Heart sounds: No murmur. Normal rate and regular rhythm. Pulses: Intact distal pulses. Lungs: No wheezing or rales. Chest wall: No tenderness. Abdominal: No distension. No mass/pulsatile mass. Diffuse moderate abdominal tenderness, guarding nor rebound. Musculoskeletal: Normal range of motion. No edema, No calf TTP. Skin: Warm and dry. Neurological: Alert and oriented to person, place, and time. Psychiatric: Mood and affect normal. Normal cognition and memory. Normal judgement. ED Course Vital Signs 12/26/21 13:14 Temperature 97.6 F Pulse Rate 153 H Respiratory 16 Rate Blood Pressure 132/91 [Left] O2 Sat by Pulse 99 Oximetry - Reevaluation(s) Reevaluation #1: 12/26/21 18:33 On evaluation the patient felt much better. Her abdomen is soft and minimally diffusely tender but with known peritoneal findings. Her CT shows colitis. Her CBC and chemistries look within normal limits. I will discharge her on s teroids pain medicine and something for her nausea and she will follow-up with her PCP or return if any other issues arise. ED Medical Decision Making - Lab Data Result diagrams: 12/26/21 14:45 12/26/21 14:45 Critical care attestation.: If time is entered above; I have spent that time in minutes in the direct care of this critically ill patient, excluding procedure time. ED Disposition Clinical Impression: Acute colitis Disposition: 01 HOME / SELF CARE / HOMELESS Is pt being admited?: No Does the pt Need Aspirin: No Condition: Stable Instructions: Colitis Prescriptions: Budesonide [Budesonide ER] 9 mg PO QDAC 15 Days #15 tab predniSONE [Deltasone] 50 mg PO QDAY 5 Days #5 tab Oxycodone HCl/Acetaminophen [Percocet 7.5/325 mg] 1 each PO Q6HR PRN 3 Days #12 tab PRN Reason: Pain Ondansetron [Zofran Odt] 4 mg PO Q6H PRN 3 Days #12 tab.rapdis PRN Reason: Nausea And Vomiting Time of Disposition: 17:35 Print Language: ITALIAN
[2021-12-26 14:57] LABS: Basophils % (Auto) 0.6 % (0.0-1.8); Eosinophils # (Auto) 0.2 K/mm3 (0.0-0.4); Eosinophils % (Auto) 2.2 % (0.0-4.3); Hematocrit 35.6 % (30.3-42.9); Hemoglobin 11.1 gm/dl (10.1-14.3); Lymphocytes % (Auto) 24.8 % (13.4-35.0); Mean Corpuscular HGB Conc 31 % (30-34); Mean Corpuscular Volume 75 fl (79-97); Monocytes # (Auto) 0.8 K/mm3 (0.0-0.8); Monocytes % (Auto) 10.5 % (0.0-7.3); Platelet Count 655 K/mm3 (140-440); Red Blood Count 4.76 M/mm3 (3.65-5.03); Red Cell Distribution Width 15.6 % (13.2-15.2)
[2021-12-26] MEDS ORDERED: methylPREDNISolone Sod Succinate 125 MG/2 ML INJ IV SCH (15:00)
[2021-12-26 15:28] LABS: Albumin 3.4 g/dL (3.9-5); Blood Urea Nitrogen 7 mg/dL (7-17); Calcium 8.7 mg/dL (8.4-10.2); Hemolysis Index 112
[2021-12-26 15:31] LABS: Alanine Aminotransferase < 5 units/L (7-56); BUN/Creatinine Ratio 12
[2021-12-26] MEDS ORDERED: DEXTROSE 50% IN WATER (25GM) 50 ML SYRINGE IV ONE (16:10)
[2021-12-26 16:29] LABS: Bilirubin,Urine NEG (Negative); Blood,Urine NEG (Negative); Color,Urine Yellow (Yellow); Hyaline Casts,Urine 14 /LPF; Mucus,Urine FEW /HPF; Urobilinogen,Urine < 2.0 mg/dL (<2.0)
[2021-12-26 17:13] LABS: HCG Qualitative,Urine Negative (Negative)
--- NOTE | 2021-12-26 18:09 | Cat Scan Report ---
CT ABDOMEN AND PELVIS WITH CONTRAST HISTORY: abd pain h/o ulcerative colitis. COMPARISON: CT abdomen/pelvis from 02/06/2021 TECHNIQUE: CT images of the abdomen and pelvis were obtained following administration of intravenous contrast. All CT scans at this location are performed using CT dose reduction for ALARA by means of automated exposure control. CONTRAST: 100 ml of intravenous contrast administered. FINDINGS: Lungs/bones: Lung bases are clear. No acute osseous abnormality. Abdomen/pelvis: The liver, gallbladder, spleen, pancreas, adrenals, kidneys, and proximal GI tract a ppear unremarkable. There is inflammatory change and wall thickening involving essentially the entire colon consistent wi th pancolitis. No bowel obstruction or perforation. No abscess formation identified. The terminal ile um and appendix appear normal. There is a slightly complex right ovarian cyst measuring 3.7 cm, likely functional in a woman of this age. Reproductive organs are otherwise unremarkable. IMPRESSION: 1. Mild to moderate deal colitis with no obstruction or perforation. 2. Likely functional right ovarian cyst. Signer Name: Javier Cuevas MD Signed: 12/26/2021 6:05 PM Workstation Name: [id number]
[2021-12-26 19:39] VITALS: BP 111/69
== END 2021-12-26 19:40 | disposition home or self-care (01) ==
LOC: ED 11:30
DX: K52.9 Noninfective gastroenteritis and colitis, unspecified (principal)
CPT/HCPCS: 36415; 74177; 80053; 81001; 81025; 83690; 85025; 93005; 96365; 96375; 99284; C9113; J2405; J2543; J2930; J3490; J7030; Q9967